=== PATIENT | male | born 1975 | race African-American/Black ===

== ENCOUNTER 2017-04-25 23:28 | Emergency (ER) | payer OTHER ==
[~2017-04-25] VITALS: Ht 185.4 cm; Wt 106.8 kg
[2017-04-26] MEDS ORDERED: BUPR150CR PO (00:09)
[2017-04-26] MEDS ORDERED: ATEN50TA PO (00:09)
[2017-04-26] MEDS ORDERED: LISI-515 PO (00:09)
[2017-04-26 00:13] VITALS: BP 170/112; PULSE 86; RESP 16; TEMP 98; O2SAT 96
--- NOTE | 2017-04-26 00:30 | PD ---
HPI Chief Complaint: Psychiatric Symptoms Time Seen by Provider: 00:25 Travel History International Travel<30 days: No Contact w/Intl Traveler<30days: No Traveled to known affect area: No History of Present Illness HPI Patient's 41-year-old male presenting to the emergency Department under a Gill act. Patient reports that he was home and heard his girlfriend in the bedroom with another man attempted to enter the bedroom but she kept pushing the door closed so he sat in the living room with a machete waiting for the door to open. He states that he has listening devices in the house and cameras and knows what his girlfriend sounds like when she is intimate with someone. Patient is certain that there was somebody else in the house. He denies any visual or auditory hallucinations, he denies any illicit drug use. He reports a history of depression and states he is compliant with his medications. He is followed by the [place]. According to the Gill act there is video proof that patient was searching the house with a machete. Patient has no physical complaints today. [facility] Past Medical History Depression: Yes Hypertension: Yes Tetanus Vaccination: < 5 Years Past Surgical History Surgical History: No Previous Surgery Social History Tobacco Use: No Substance Use: No Allergies-Medications (Allergen,Severity, Reaction): Coded Allergies: No Known Allergies (Unverified , 04/26/17) Reported Meds & Prescriptions Reported Meds & Active Scripts Active Reported Atenolol 50 Mg Tab 50 Mg PO BID Lisinopril 20 Mg Tab 20 Mg PO DAILY Wellbutrin SR 12 HR (Bupropion HCl) 150 Mg Tab 150 Mg PO Q12HR Review of Systems Except as stated in HPI: all other systems reviewed are Neg Psychiatric: Positive: Disorder of Thought Physical Exam Narrative GENERAL: Overweight, well-developed, alert male. Resting comfortably in no acute distress. SKIN: Focused skin assessment warm/dry. HEAD: Atraumatic. Normocephalic. EYES: Pupils equal and round. No scleral icterus. No injection or drainage. ENT: No nasal bleeding or discharge. Mucous membranes pink and moist. NECK: Trachea midline. No JVD. CARDIOVASCULAR: Regular rate and rhythm. No murmur appreciated. RESPIRATORY: No accessory muscle use. Clear to auscultation. Breath sounds equal bilaterally. GASTROINTESTINAL: Abdomen soft, non-tender, nondistended. Hepatic and splenic margins not palpable. MUSCULOSKELETAL: No obvious deformities. No clubbing. No cyanosis. No edema. NEUROLOGICAL: Awake and alert. No obvious cranial nerve deficits. Motor grossly within normal limits. Normal speech. PSYCHIATRIC: Appropriate mood and affect; insight and judgment normal. Data Data Last Documented VS Vital Signs Date Time Temp Pulse Resp B/P Pulse Ox O2 Delivery O2 Flow Rate FiO2 04/26/17 00:13 98.0 86 16 170/112 96 Room Air Orders Complete Blood Count With Diff (04/26/17 00:12) Comprehensive Metabolic Panel (04/26/17 00:12) Psych Screen (04/26/17 00:12) Drug Screen, Random Urine (04/26/17 00:12) Alcohol (Ethanol) (04/26/17 00:12) Salicylates (Aspirin) (04/26/17 00:12) Tylenol (Acetaminophen) (04/26/17 00:12) Labs Laboratory Tests Test 04/26/17 00:30 White Blood Count 6.0 TH/MM3 Red Blood Count 5.39 MIL/MM3 Hemoglobin 14.2 GM/DL Hematocrit 43.5 % Mean Corpuscular Volume 80.7 FL Mean Corpuscular Hemoglobin 26.3 PG Mean Corpuscular Hemoglobin 32.6 % Concent Red Cell Distribution Width 14.2 % Platelet Count 358 TH/MM3 Mean Platelet Volume 8.1 FL Neutrophils (%) (Auto) 57.7 % Lymphocytes (%) (Auto) 32.0 % Monocytes (%) (Auto) 8.8 % Eosinophils (%) (Auto) 0.4 % Basophils (%) (Auto) 1.1 % Neutrophils # (Auto) 3.4 TH/MM3 Lymphocytes # (Auto) 1.9 TH/MM3 Monocytes # (Auto) 0.5 TH/MM3 Eosinophils # (Auto) 0.0 TH/MM3 Basophils # (Auto) 0.1 TH/MM3 CBC Comment DIFF FINAL Differential Comment Sodium Level 139 MEQ/L Potassium Level 3.4 MEQ/L Chloride Level 102 MEQ/L Carbon Dioxide Level 30.0 MEQ/L Anion Gap 7 MEQ/L Blood Urea Nitrogen 24 MG/DL Creatinine 1.77 MG/DL Estimat Glomerular Filtration 43 ML/MIN Rate Random Glucose 84 MG/DL Calcium Level 9.7 MG/DL Total Bilirubin 0.6 MG/DL Aspartate Amino Transf 29 U/L (AST/SGOT) Alanine Aminotransferase 37 U/L (ALT/SGPT) Alkaline Phosphatase 75 U/L Total Protein 8.5 GM/DL Albumin 4.0 GM/DL Salicylates Level LESS THAN 1.7 MG/DL Acetaminophen Level LESS THAN 2.0 MCG/ML Ethyl Alcohol Level LESS THAN 3 MG/DL MDM Medical Decision Making Medical Screen Exam Complete: Yes Emergency Medical Condition: Yes Interpretation(s) Vital Signs Date Time Temp Pulse Resp B/P Pulse Ox O2 Delivery O2 Flow Rate FiO2 04/26/17 00:13 98.0 86 16 170/112 96 Room Air Differential Diagnosis Mood disorder versus substance abuse versus psychosis versus suicidal ideations versus homicidal ideations versus other Narrative Course Patient is a 41-year-old male currently under Gill act due to threatening behavior at home. Patient has been cooperative on the emergency department. Mental health screening discussed with the patient. Psychiatric screen ordered. CBC unremarkable Chemistry was slightly elevated BUN and creatinine, by mouth fluids encouraged in the emergency department Salicylate level, acetaminophen level, alcohol or unremarkable. Urine drug screen pending Patient is medically clear for psychiatric evaluation at this time. Diagnosis Primary Impression: Medical clearance for psychiatric admission Condition: Stable Ling Newsome Apr 26, 2017 00:30
[2017-04-26 00:44] LABS: AUTOMATED NEUTROPHIL # 3.4 TH/MM3 (1.8-7.7); BASOPHIL # 0.1 TH/MM3 (0-0.2); BASOPHIL % 1.1 % (0.0-2.0); EOSINOPHIL % 0.4 % (0.0-4.0); HEMATOCRIT 43.5 % (39.0-51.0); HEMO FLAGS DIFF FINAL; LYMPHOCYTE # 1.9 TH/MM3 (1.0-4.8); MEAN CELL VOLUME 80.7 FL (80.0-100.0); MEAN CORPUSCULAR HEMOGLOBIN 26.3 PG (27.0-34.0); MEAN CORPUSCULAR HGB CONC 32.6 % (32.0-36.0); MONO % 8.8 % (0.0-8.0); NEUT % 57.7 % (16.0-70.0); PLATELET COUNT 358 TH/MM3 (150-450); RED BLOOD COUNT 5.39 MIL/MM3 (4.50-5.90); RED CELL DISTRIBUTION WIDTH 14.2 % (11.6-17.2)
[2017-04-26 01:08] LABS: ALT (GPT) 37 U/L (12-78); ANION GAP 7 MEQ/L (5-15); AST (GOT) 29 U/L (15-37); CHLORIDE 102 MEQ/L (98-107); GLOMERULAR FILTRATION RATE 43 ML/MIN (>89); POTASSIUM 3.4 MEQ/L (3.5-5.1); SODIUM (NA) 139 MEQ/L (136-145)
[2017-04-26 01:20] LABS: ALKALINE PHOSPHATASE 75 U/L (45-117); BLOOD UREA NITROGEN 24 MG/DL (7-18); TOTAL BILIRUBIN ADULT 0.6 MG/DL (0.2-1.0)
[2017-04-26 01:21] LABS: ACETAMINOPHEN LESS THAN 2.0 MCG/ML (10.0-30.0)
[2017-04-26 05:20] VITALS: BP 151/81; PULSE 59; PULSE 60; RESP 16; RESP 18; TEMP 97.9; O2SAT 95; O2SAT 96
[2017-04-26 06:15] LABS: AMPHETAMINE, URINE POS (NEG); BARBITURATES, URINE NEG (NEG); COCAINE, URINE NEG (NEG)
[2017-04-26 11:27] VITALS: BP 153/103; PULSE 77; RESP 16; O2SAT 95
--- NOTE | 2017-04-26 17:29 | PD ---
History of Present Illness Chief Complaint: Psychiatric Symptoms Time Seen by Provider: 17:20 Travel History International Travel<30 Days: No Contact w/Intl Traveler<30days: No Known affected area: No Legal Status Legal Status: Gill Act Gill Act Signed By: Yani Gallagher History of Present Illness: 41-year-old male who was admitted under a Gill act for reportedly walking around the inside of his house with a machete. Patient alleged at the time of the Gill act that there was a man in the house with the woman with whom he resides. He has continued to maintain that believe. He also continues to maintain the position that there are video cameras and listening devices in his house because he has placed him there. It is noted the patient has a past diagnosis of posttraumatic stress disorder from serving time in the . He does believe the woman with whom he resides is seeing other men. According to the medical record, the woman is pushing him out of her bedroom and stating that he hears voices and sees things that aren't there. Patient denies this. In any event, his cognition is completely intact. He denies any suicidal or homicidal ideation, plan or intent. He can return to the [facility] at any time and seek outpatient treatment. He is verbally brian for safety and would like to go home. He has been calm, pleasant and cooperative since he has been here. He denies any use of alcohol or illicit drugs. 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 He states he likes the job and it allows him to converse with other people. He believes he is being successful in his work and this physician has no reason to doubt him. [facility] Past Medical History Depression: Yes Hypertension: Yes Tetanus Vaccination: < 5 Years Past Surgical History Surgical History: No Previous Surgery Psychiatric History Psychiatric History Hx Psychiatric Treatment: MDD UNDER CARE AT [facility]. History of Inpatient Treatment: No Guns or firearms in home: No Social History Hx Alcohol Use: Yes (OCCASIONALY) Hx Tobacco Use: No Hx Substance Use: Yes Substance Use Type: Alcohol Other Substances Used: OCCASSIONAL WINE, NO OTHER ALCOHOL. Hx of Substance Use Treatment: No Allergies-Medications (Allergen,Severity, Reaction): Coded Allergies: No Known Allergies (Unverified , 04/26/17) Reported Meds & Prescriptions Reported Meds & Active Scripts Active Reported Atenolol 50 Mg Tab 50 Mg PO BID Lisinopril 20 Mg Tab 20 Mg PO DAILY Wellbutrin SR 12 HR (Bupropion HCl) 150 Mg Tab 150 Mg PO Q12HR Review of Systems Except as stated in HPI: all other systems reviewed are Neg Exam Alert: Yes [place]: Person, Place, Date, Situation Mood: Calm Affect: Appropriate Speech: Clear, Logical Eye Contact: Normal Memory Intact: Immediate, Recent, Remote Insight/Judgement adequate. MDM Medical Decision Making Medical Record Reviewed: Yes Assessment/Plan This physician spoke to the patient's nurse regarding his behavior over almost the last 24 hours. Patient continues to be appropriate, pleasant, cooperative, and nonthreatening. He has repeatedly stated he is not having any suicidal or homicidal ideation, plan or intent towards his female roommate or anyone else. As stated above, the patient does have a history of mood disorder and possibly posttraumatic stress disorder from serving in the . This would explain why he has cameras and listening devices in his home. He may or may not have delusions about an intruder in his home. However at this time his cognition is intact and he is competent to make decisions. He is verbally brian for safety and willing to seek follow up care at the [facility] here in [place]. This physician does not find the patient to be needing inpatient psychiatric treatment and is Gill act was discontinued. Orders Complete Blood Count With Diff (04/26/17 00:12) Comprehensive Metabolic Panel (04/26/17 00:12) Psych Screen (04/26/17 00:12) Drug Screen, Random Urine (04/26/17 00:12) Alcohol (Ethanol) (04/26/17 00:12) Salicylates (Aspirin) (04/26/17 00:12) Tylenol (Acetaminophen) (04/26/17 00:12) Diet Regular Basic (04/26/17 Breakfast) Diet Regular Basic (04/26/17 Lunch) Diet Regular Basic (04/26/17 Dinner) Results Vital Signs Date Time Temp Pulse Resp B/P Pulse Ox O2 Delivery O2 Flow Rate FiO2 04/26/17 11:27 77 16 153/103 95 Room Air 04/26/17 05:20 97.9 59 18 151/81 96 Room Air 04/26/17 05:20 60 16 151/81 95 Room Air 04/26/17 00:13 98.0 86 16 170/112 96 Room Air Laboratory Tests Test 04/26/17 04/26/17 00:30 05:36 White Blood Count 6.0 Red Blood Count 5.39 Hemoglobin 14.2 Hematocrit 43.5 Mean Corpuscular Volume 80.7 Mean Corpuscular Hemoglobin 26.3 Mean Corpuscular Hemoglobin 32.6 Concent Red Cell Distribution Width 14.2 Platelet Count 358 Mean Platelet Volume 8.1 Neutrophils (%) (Auto) 57.7 Lymphocytes (%) (Auto) 32.0 Monocytes (%) (Auto) 8.8 Eosinophils (%) (Auto) 0.4 Basophils (%) (Auto) 1.1 Neutrophils # (Auto) 3.4 Lymphocytes # (Auto) 1.9 Monocytes # (Auto) 0.5 Eosinophils # (Auto) 0.0 Basophils # (Auto) 0.1 CBC Comment DIFF FINAL Differential Comment Sodium Level 139 Potassium Level 3.4 Chloride Level 102 Carbon Dioxide Level 30.0 Anion Gap 7 Blood Urea Nitrogen 24 Creatinine 1.77 Estimat Glomerular Filtration 43 Rate Random Glucose 84 Calcium Level 9.7 Total Bilirubin 0.6 Aspartate Amino Transf 29 (AST/SGOT) Alanine Aminotransferase 37 (ALT/SGPT) Alkaline Phosphatase 75 Total Protein 8.5 Albumin 4.0 Salicylates Level LESS THAN 1.7 Acetaminophen Level LESS THAN 2.0 Ethyl Alcohol Level LESS THAN 3 Urine Opiates Screen NEG Urine Barbiturates Screen NEG Urine Amphetamines Screen POS Urine Benzodiazepines Screen NEG Urine Cocaine Screen NEG Urine Cannabinoids Screen NEG Diagnosis Primary Impression: Adjustment disorder with mixed disturbance of emotions and conduct Condition: Stable Bradford Paul MD Apr 26, 2017 17:29
== END 2017-04-26 18:30 | disposition home or self-care (01) ==
LOC: NEPD 23:28 → NEPJ 04-26 18:30
DX: F43.25 Adjustment disorder with mixed disturbance of emotions and conduct (principal); I10 Essential (primary) hypertension
CPT/HCPCS: 80053; 80307; 85025; 99283